=== PATIENT | female | born 1950 | race Caucasian/White ===

== ENCOUNTER 2022-03-08 01:09 | Inpatient (IN) | payer MEDICARE, BC ==
[~2022-03-08] VITALS: Ht 160 cm; Wt 190.5 kg
[2022-03-08] MEDS ORDERED: PREDNISONE 20MG TABLET PO STA (01:24)
[2022-03-08] MEDS ORDERED: ALBUTEROL (0.083%) 2.5MG/3ML NEB HHN STA (01:24)
[2022-03-08] MEDS ORDERED: IPRATROPIUM BROMIDE (0.02%) 0.5MG/2.5ML NEB HHN STA (01:24)
[2022-03-08] MEDS ORDERED: AZITHROMYCIN 500MG/250ML 250 ML IV ONE (01:30)
[2022-03-08] MEDS ORDERED: CEFTRIAXONE 1 G PREMIX 50 ML IV ONE (01:30)
[2022-03-08 02:00] LABS: BASOPHILS % 0.6 % (0.0-2.0); CHLORIDE 88 mEq/L (98-107); EOSINOPHILS % 1.5 % (0.0-5.0); HEMATOCRIT. 40.9 % (36.0-48.0); HEMOGLOBIN. 12.5 g/dL (12.0-16.0); LYMPHOCYTES % 12.3 % (20.0-50.0); MEAN CORPUSCULAR HEMOGLOBIN 28.1 pg (28.0-32.0); MEAN CORPUSCULAR VOLUME 91.9 fL (81.0-99.0); MEAN PLATELET VOLUME 8.2 fl (7.4-10.4); NEUTROPHILS % 78.6 % (40.0-76.0); PLATELET 224 x1000/uL (130-400); RED BLOOD CELL COUNT 4.45 mill/uL (4.2-5.4)
[2022-03-08 02:13] LABS: BG BASE EXCESS 21.3 mmol/L (-2.0-2.0); BG CARBOXYHEMOGLOBIN 1.8 % (0.5-1.5); BG DEOXYHEMOGLOBIN 7.9 % (0.0-5.0); BG FRACTION INSPIRED OXYGEN 36; BG HCO3 ACT 54.9 mmol/L (22.0-26.0); BG METHEMOGLOBIN 0.2 % (0.0-1.5); BG OXYGEN SATURATION 91.9 % (92.0-98.5); BG OXYHEMOGLOBIN 90.1 % (94.0-97.0); BG PCO2 125.5 mmHg (35.0-45.0); BG PH 7.259 (7.350-7.450); BG PO2 65.1 mmHg (75.0-100.0); BG TOTAL HEMOGLOBIN 13.6 g/dL (12.0-18.0); BG VENT MODE NASAL CANNULA
[2022-03-08 05:14] LABS: CLARITY URINE TURBID (CLEAR); COLOR URINE YELLOW (YELLOW); KETONES URINE NEGATIVE (NEGATIVE); LEUKOCYTE ESTERASE URINE 1+ (NEGATIVE); NITRITE URINE NEGATIVE (NEGATIVE); OCCULT BLOOD URINE NEGATIVE (NEGATIVE); PROTEIN URINE NEGATIVE (NEGATIVE); SPECIFIC GRAVITY URINE 1.013 (1.005-1.030); UROBILINOGEN URINE 0.2 E.U./dL (0.2-1.0)
[2022-03-08] MEDS ORDERED: ACETAMINOPHEN 325MG TABLET PO PRN (07:00)
[2022-03-08] MEDS ORDERED: KETOROLAC 30MG/ML VIAL IV PRN (07:00)
[2022-03-08] MEDS ORDERED: ZOLPIDEM TARTRATE 5MG TABLET PO PRN (07:00)
[2022-03-08] MEDS ORDERED: NITROGLYCERIN 0.4MG TABLET SL SL PRN (07:00)
[2022-03-08] MEDS ORDERED: MAGNESIUM/ALUMINUM HYDROXIDE/SIMETHICONE 30ML UDC PO PRN (07:00)
[2022-03-08] MEDS ORDERED: CLONIDINE 0.1MG TABLET PO PRN (07:00)
[2022-03-08] MEDS ORDERED: IPRATROPIUM/ALBUTEROL 0.5-3(2.5)MG/3ML NEB NEB PRN (07:00)
[2022-03-08 08:04] LABS: ETHANOL BLOOD < 10 mg/dL; HDL CHOLESTEROL 65 mg/dL (40-59); LDL CHOLESTEROL 78 mg/dL (5-100); TOTAL IRON BINDING CAPACITY 333 ug/dL (250-450)
[2022-03-08] MEDS: FUROSEMIDE 100MG/10ML VIAL IVP SCH ×2 (08:08→18:31)
[2022-03-08] MEDS: METHYLPREDNISOLONE SOD SUCC 125 MG/2 ML VIAL IV SCH ×3 (08:08→21:31)
[2022-03-08] MEDS: SPIRONOLACTONE 25MG TABLET PO SCH ×2 (08:08→18:31)
[2022-03-08] MEDS: ENOXAPARIN 40MG/0.4ML SYR SUBCUT SCH ×2 (08:10→21:33)
[2022-03-08 08:19] LABS: FOLIC ACID (FOLATE) SERUM >20 ng/mL ng/mL (>5.38); VITAMIN B12 SERUM 1445 pg/mL (211-911)
[2022-03-08] MEDS: IPRATROPIUM/ALBUTEROL 0.5-3(2.5)MG/3ML NEB HHN SCH ×4 (08:39→20:27)
[2022-03-08] MEDS ORDERED: CEFTRIAXONE 1 G PREMIX 50 ML IV SCH (09:00)
[2022-03-08 09:23] LABS: BG BASE EXCESS 20.6 mmol/L (-2.0-2.0); BG CARBOXYHEMOGLOBIN 1.7 % (0.5-1.5); BG FRACTION INSPIRED OXYGEN 36; BG HCO3 ACT 51.5 mmol/L (22.0-26.0); BG METHEMOGLOBIN 0.3 % (0.0-1.5); BG OXYGEN SATURATION 94.9 % (92.0-98.5); BG PCO2 94.4 mmHg (35.0-45.0); BG PH 7.355 (7.350-7.450); BG PO2 71.8 mmHg (75.0-100.0); BG SAMPLE SITE RIGHT RADIAL; BG TOTAL HEMOGLOBIN 13.7 g/dL (12.0-18.0); BG VENT MODE NASAL CANNULA
[2022-03-08] MEDS: ZINC SULFATE 220 MG ( 50 ) CAPSULE PO SCH (09:34)
[2022-03-08] MEDS: ASPIRIN 325MG EC TABLET PO SCH (09:34)
[2022-03-08] MEDS: ASCORBIC ACID 500 MG TABLET PO SCH ×2 (09:34→21:32)
[2022-03-08] MEDS: FAMOTIDINE 20MG TABLET PO SCH ×2 (09:34→21:33)
[2022-03-08 14:00] VITALS: BP 123/64
[2022-03-08 14:04] VITALS: BP 123/64
[2022-03-08] MEDS ORDERED: OXYC-100 PO (14:52)
[2022-03-08] MEDS ORDERED: DOCU100T MT (14:52)
[2022-03-08] MEDS ORDERED: HYDR-4134 MT (14:52)
[2022-03-08] MEDS ORDERED: ISOS10TA2 MT (14:52)
[2022-03-08] MEDS ORDERED: BACL-141 MT (14:52)
[2022-03-08] MEDS ORDERED: FURO40TA5 MT (14:52)
[2022-03-08] MEDS ORDERED: POTA10CA42 MT (14:52)
[2022-03-08] MEDS ORDERED: RAMI2.5C54 MT (14:52)
[2022-03-08] MEDS ORDERED: DULO60CA64 PO (14:52)
[2022-03-08 16:00] VITALS: BP 123/70
[2022-03-08 17:24] LABS: CREATINE KINASE 52 IU/L (26-192); CREATINE KINASE MB FRACTION < 1.0 ng/mL (0.5-3.6)
[2022-03-08 18:00] VITALS: BP 148/72
[2022-03-08 20:00] VITALS: BP 133/106
[2022-03-08] MEDS: GUAIFENESIN 200MG/10ML SUGAR FREE UDC PO PRN (21:31)
[2022-03-08] MEDS: ONDANSETRON HCL 4MG/2ML INJ IV PRN (21:32)
[2022-03-08] MEDS: ACETAMINOPHEN 325MG TABLET PO PRN (21:32)
[2022-03-08] MEDS: GUAIFENESIN 600MG ER TABLET PO SCH (21:38)
[2022-03-08 22:00] VITALS: BP 159/61
[2022-03-08] MEDS ORDERED: KETOROLAC 15MG/ML VIAL IV PRN (23:00)
[2022-03-08] MEDS: TRAMADOL 50MG TABLET PO PRN (23:56)
[2022-03-09] VITALS (13 sets, daily range): BP systolic 109–148; BP diastolic 29–87
[2022-03-09 00:23] LABS: CREATINE KINASE 61 IU/L (26-192); CREATINE KINASE MB FRACTION < 1.0 ng/mL (0.5-3.6)
[2022-03-09] MEDS: IPRATROPIUM/ALBUTEROL 0.5-3(2.5)MG/3ML NEB HHN SCH ×6 (00:24→20:43)
[2022-03-09] MEDS: CEFTRIAXONE 1,000 MG in DEXTROSE 5% WATER 50 ML IV SCH ×2 (01:12→09:25)
[2022-03-09] MEDS: AZITHROMYCIN 500 MG in DEXT 5% WATER 250 ML IV SCH (01:12)
[2022-03-09 06:16] LABS: CHLORIDE 83 mEq/L (98-107); HEMATOCRIT. 42.2 % (36.0-48.0); HEMOGLOBIN. 12.9 g/dL (12.0-16.0); MEAN CORPUSCULAR VOLUME 91.6 fL (81.0-99.0); MEAN PLATELET VOLUME 8.4 fl (7.4-10.4); PLATELET 237 x1000/uL (130-400); RED BLOOD CELL COUNT 4.61 mill/uL (4.2-5.4); RED CELL DISTRIBUTION WIDTH 15.9 % (11.6-14.6)
[2022-03-09] MEDS: METHYLPREDNISOLONE SOD SUCC 125 MG/2 ML VIAL IV SCH ×3 (06:18→22:01)
[2022-03-09] MEDS: FUROSEMIDE 100MG/10ML VIAL IVP SCH ×2 (06:18→17:27)
[2022-03-09] MEDS: SPIRONOLACTONE 25MG TABLET PO SCH ×2 (06:19→17:26)
[2022-03-09 06:30] LABS: PHOSPHORUS 3.8 mg/dL (2.5-4.9)
[2022-03-09 08:21] LABS: PLATELET ESTIMATE NORMAL
[2022-03-09 08:37] LABS: BG BASE EXCESS 19.5 mmol/L (-2.0-2.0); BG DEOXYHEMOGLOBIN 6.4 % (0.0-5.0); BG FRACTION INSPIRED OXYGEN 36; BG METHEMOGLOBIN 0.3 % (0.0-1.5); BG OXYGEN SATURATION 93.4 % (92.0-98.5); BG OXYHEMOGLOBIN 91.3 % (94.0-97.0); BG PCO2 134.4 mmHg (35.0-45.0); BG PH 7.222 (7.350-7.450); BG PO2 71.4 mmHg (75.0-100.0); BG SAMPLE SITE LEFT RADIAL; BG TOTAL HEMOGLOBIN 14.1 g/dL (12.0-18.0); BG VENT MODE NASAL CANNULA
[2022-03-09] MEDS: FAMOTIDINE 20MG TABLET PO SCH ×2 (09:25→20:33)
[2022-03-09] MEDS: ASPIRIN 325MG EC TABLET PO SCH (09:25)
[2022-03-09] MEDS: ZINC SULFATE 220 MG ( 50 ) CAPSULE PO SCH (09:25)
[2022-03-09] MEDS: GUAIFENESIN 600MG ER TABLET PO SCH ×2 (09:25→20:33)
[2022-03-09] MEDS: ASCORBIC ACID 500 MG TABLET PO SCH ×2 (09:25→20:33)
[2022-03-09] MEDS: ENOXAPARIN 40MG/0.4ML SYR SUBCUT SCH ×2 (09:28→20:33)
[2022-03-09] MEDS: DOCUSATE SODIUM 100MG CAPSULE PO PRN (12:43)
[2022-03-09] MEDS: TRAMADOL 50MG TABLET PO PRN (12:44)
[2022-03-09] MEDS ORDERED: NALOXONE HCL 0.4MG/ML VIAL IV PRN (19:30)
[2022-03-10] VITALS (14 sets, daily range): BP systolic 97–135; BP diastolic 49–85
[2022-03-10] MEDS: AZITHROMYCIN 500 MG in DEXT 5% WATER 250 ML IV SCH (00:16)
[2022-03-10] MEDS: IPRATROPIUM/ALBUTEROL 0.5-3(2.5)MG/3ML NEB HHN SCH ×7 (00:22→23:54)
[2022-03-10] MEDS: SPIRONOLACTONE 25MG TABLET PO SCH ×2 (05:36→17:20)
[2022-03-10] MEDS: FUROSEMIDE 100MG/10ML VIAL IVP SCH ×2 (05:36→17:16)
[2022-03-10] MEDS: METHYLPREDNISOLONE SOD SUCC 125 MG/2 ML VIAL IV SCH ×3 (05:36→21:39)
[2022-03-10] MEDS: ASPIRIN 325MG EC TABLET PO SCH (08:09)
[2022-03-10] MEDS: CEFTRIAXONE 1,000 MG in DEXTROSE 5% WATER 50 ML IV SCH (08:09)
[2022-03-10] MEDS: GUAIFENESIN 600MG ER TABLET PO SCH ×2 (08:10→20:01)
[2022-03-10] MEDS: ZINC SULFATE 220 MG ( 50 ) CAPSULE PO SCH (08:10)
[2022-03-10] MEDS: FAMOTIDINE 20MG TABLET PO SCH ×2 (08:10→20:01)
[2022-03-10] MEDS: ENOXAPARIN 40MG/0.4ML SYR SUBCUT SCH ×2 (08:10→20:02)
[2022-03-10] MEDS: ASCORBIC ACID 500 MG TABLET PO SCH ×2 (08:10→20:01)
[2022-03-10] MEDS: ACETAMINOPHEN 325MG TABLET PO PRN ×2 (08:11→20:01)
[2022-03-10 10:15] LABS: BG BASE EXCESS 15.3 mmol/L (-2.0-2.0); BG CARBOXYHEMOGLOBIN 1.6 % (0.5-1.5); BG DEOXYHEMOGLOBIN 5.5 % (0.0-5.0); BG FRACTION INSPIRED OXYGEN 44; BG HCO3 ACT 44.5 mmol/L (22.0-26.0); BG METHEMOGLOBIN 0.2 % (0.0-1.5); BG OXYGEN SATURATION 94.4 % (92.0-98.5); BG OXYHEMOGLOBIN 92.7 % (94.0-97.0); BG PCO2 79.4 mmHg (35.0-45.0); BG PH 7.366 (7.350-7.450); BG PO2 66.2 mmHg (75.0-100.0); BG SAMPLE SITE RIGHT RADIAL; BG TOTAL HEMOGLOBIN 13.3 g/dL (12.0-18.0); BG VENT MODE NASAL CANNULA
[2022-03-10] MEDS: TRAMADOL 50MG TABLET PO PRN (15:21)
[2022-03-10] MEDS: GUAIFENESIN 200MG/10ML SUGAR FREE UDC PO PRN (17:26)
[2022-03-10] MEDS: ONDANSETRON HCL 4MG/2ML INJ IV PRN (20:01)
[2022-03-11] VITALS (12 sets, daily range): BP systolic 101–145; BP diastolic 45–72
[2022-03-11] MEDS: AZITHROMYCIN 500 MG in DEXT 5% WATER 250 ML IV SCH (00:21)
[2022-03-11] MEDS: IPRATROPIUM/ALBUTEROL 0.5-3(2.5)MG/3ML NEB HHN SCH ×5 (04:09→21:01)
[2022-03-11] MEDS: SPIRONOLACTONE 25MG TABLET PO SCH ×2 (05:56→17:58)
[2022-03-11] MEDS: METHYLPREDNISOLONE SOD SUCC 125 MG/2 ML VIAL IV SCH ×3 (05:56→21:46)
[2022-03-11] MEDS: FUROSEMIDE 100MG/10ML VIAL IVP SCH ×2 (05:56→17:57)
[2022-03-11 06:52] LABS: HEMATOCRIT 40.1 % (36.0-48.0); HEMOGLOBIN 12.3 g/dL (12.0-16.0); MEAN CORPUSCULAR HEMOGLOBIN 28.1 pg (28.0-32.0); MEAN CORPUSCULAR VOLUME 91.6 fL (81.0-99.0); PLATELET 223 x1000/uL (130-400); RED BLOOD CELL COUNT 4.38 mill/uL (4.2-5.4); RED CELL DISTRIBUTION WIDTH 15.1 % (11.6-14.6)
[2022-03-11 06:56] LABS: CHLORIDE 84 mEq/L (98-107)
[2022-03-11] MEDS: CEFTRIAXONE 1,000 MG in DEXTROSE 5% WATER 50 ML IV SCH (08:42)
[2022-03-11] MEDS: FAMOTIDINE 20MG TABLET PO SCH ×2 (08:43→21:46)
[2022-03-11] MEDS: ASPIRIN 325MG EC TABLET PO SCH (08:43)
[2022-03-11] MEDS: ZINC SULFATE 220 MG ( 50 ) CAPSULE PO SCH (08:43)
[2022-03-11] MEDS: ASCORBIC ACID 500 MG TABLET PO SCH ×2 (08:43→21:46)
[2022-03-11] MEDS: GUAIFENESIN 600MG ER TABLET PO SCH ×2 (08:43→21:46)
[2022-03-11] MEDS: ENOXAPARIN 40MG/0.4ML SYR SUBCUT SCH ×2 (08:43→21:46)
[2022-03-11 08:45] LABS: BG BASE EXCESS 27.8 mmol/L (-2.0-2.0); BG CARBOXYHEMOGLOBIN 1.3 % (0.5-1.5); BG DEOXYHEMOGLOBIN 10.9 % (0.0-5.0); BG FRACTION INSPIRED OXYGEN 65; BG HCO3 ACT 62.8 mmol/L (22.0-26.0); BG METHEMOGLOBIN 0.4 % (0.0-1.5); BG OXYGEN SATURATION 88.9 % (92.0-98.5); BG OXYHEMOGLOBIN 87.4 % (94.0-97.0); BG PCO2 138.6 mmHg (35.0-45.0); BG PH 7.274 (7.350-7.450); BG SAMPLE SITE RIGHT RADIAL; BG TOTAL HEMOGLOBIN 13.9 g/dL (12.0-18.0); BG VENT MODE MASK - BIPAP
[2022-03-11] MEDS: ONDANSETRON HCL 4MG/2ML INJ IV PRN (21:51)
[2022-03-12] VITALS (11 sets, daily range): BP systolic 102–140; BP diastolic 51–83
[2022-03-12] MEDS: AZITHROMYCIN 500 MG in DEXT 5% WATER 250 ML IV SCH (00:33)
[2022-03-12] MEDS: IPRATROPIUM/ALBUTEROL 0.5-3(2.5)MG/3ML NEB HHN SCH ×6 (00:56→23:00)
[2022-03-12 06:06] LABS: CHLORIDE 84 mEq/L (98-107)
[2022-03-12 06:33] LABS: MEAN CORPUSCULAR HEMOGLOBIN 28.2 pg (28.0-32.0); MEAN CORPUSCULAR VOLUME 91.8 fL (81.0-99.0); PLATELET 203 x1000/uL (130-400); RED BLOOD CELL COUNT 4.24 mill/uL (4.2-5.4); RED CELL DISTRIBUTION WIDTH 15.1 % (11.6-14.6)
[2022-03-12] MEDS: FUROSEMIDE 40MG/4ML VIAL IVP SCH ×2 (06:34→17:05)
[2022-03-12] MEDS: SPIRONOLACTONE 25MG TABLET PO SCH ×2 (06:35→17:05)
[2022-03-12] MEDS: METHYLPREDNISOLONE SOD SUCC 125 MG/2 ML VIAL IV SCH ×3 (06:38→21:43)
[2022-03-12 07:55] LABS: BG BASE EXCESS 34.8 mmol/L (-2.0-2.0); BG CARBOXYHEMOGLOBIN 1.2 % (0.5-1.5); BG DEOXYHEMOGLOBIN 7.7 % (0.0-5.0); BG FRACTION INSPIRED OXYGEN 85; BG HCO3 ACT 68.8 mmol/L (22.0-26.0); BG METHEMOGLOBIN 0.2 % (0.0-1.5); BG OXYGEN SATURATION 92.2 % (92.0-98.5); BG OXYHEMOGLOBIN 90.9 % (94.0-97.0); BG PCO2 126.3 mmHg (35.0-45.0); BG PH 7.354 (7.350-7.450); BG PO2 62.2 mmHg (75.0-100.0); BG SAMPLE SITE RIGHT RADIAL; BG TOTAL HEMOGLOBIN 13.3 g/dL (12.0-18.0); BG VENT MODE MASK - BIPAP
[2022-03-12] MEDS: GUAIFENESIN 600MG ER TABLET PO SCH ×2 (09:11→21:42)
[2022-03-12] MEDS: ZINC SULFATE 220 MG ( 50 ) CAPSULE PO SCH (09:11)
[2022-03-12] MEDS: FAMOTIDINE 20MG TABLET PO SCH ×2 (09:11→21:42)
[2022-03-12] MEDS: ASCORBIC ACID 500 MG TABLET PO SCH ×2 (09:11→21:42)
[2022-03-12] MEDS: CEFTRIAXONE 1,000 MG in DEXTROSE 5% WATER 50 ML IV SCH (09:11)
[2022-03-12] MEDS: ACETAMINOPHEN 325MG TABLET PO PRN ×2 (09:12→17:05)
[2022-03-12] MEDS: ASPIRIN 325MG EC TABLET PO SCH (09:12)
[2022-03-12] MEDS: ENOXAPARIN 40MG/0.4ML SYR SUBCUT SCH ×2 (09:12→21:43)
[2022-03-12] MEDS: DOCUSATE SODIUM 100MG CAPSULE PO PRN (17:24)
[2022-03-13] VITALS (61 sets, daily range): BP systolic 65–152; BP diastolic 24–89
[2022-03-13 00:15] LABS: BG BASE EXCESS 26.4 mmol/L (-2.0-2.0); BG CARBOXYHEMOGLOBIN 1.3 % (0.5-1.5); BG DEOXYHEMOGLOBIN 14.8 % (0.0-5.0); BG FRACTION INSPIRED OXYGEN 100; BG HCO3 ACT 57.6 mmol/L (22.0-26.0); BG METHEMOGLOBIN 0.1 % (0.0-1.5); BG OXYHEMOGLOBIN 83.8 % (94.0-97.0); BG PCO2 98.3 mmHg (35.0-45.0); BG PH 7.386 (7.350-7.450); BG PO2 49.8 mmHg (75.0-100.0); BG SAMPLE SITE LEFT RADIAL; BG TOTAL HEMOGLOBIN 13.3 g/dL (12.0-18.0); BG VENT MODE MASK - BIPAP
[2022-03-13] MEDS: IPRATROPIUM/ALBUTEROL 0.5-3(2.5)MG/3ML NEB HHN SCH ×4 (05:15→19:52)
[2022-03-13] MEDS: FUROSEMIDE 40MG/4ML VIAL IVP SCH ×2 (05:23→17:43)
[2022-03-13] MEDS: METHYLPREDNISOLONE SOD SUCC 125 MG/2 ML VIAL IV SCH ×3 (05:23→21:50)
[2022-03-13] MEDS: SPIRONOLACTONE 25MG TABLET PO SCH ×2 (05:26→17:46)
[2022-03-13 06:36] LABS: CHLORIDE 79 mEq/L (98-107)
[2022-03-13] MEDS: ZINC SULFATE 220 MG ( 50 ) CAPSULE PO SCH (08:30)
[2022-03-13] MEDS: ASPIRIN 325MG EC TABLET PO SCH (08:30)
[2022-03-13] MEDS: FAMOTIDINE 20MG TABLET PO SCH ×2 (08:31→21:49)
[2022-03-13] MEDS: ENOXAPARIN 40MG/0.4ML SYR SUBCUT SCH (08:31)
[2022-03-13] MEDS: ASCORBIC ACID 500 MG TABLET PO SCH ×2 (08:31→21:49)
[2022-03-13] MEDS: GUAIFENESIN 600MG ER TABLET PO SCH (08:31)
[2022-03-13 08:39] LABS: BG BASE EXCESS 33.2 mmol/L (-2.0-2.0); BG CARBOXYHEMOGLOBIN 1.2 % (0.5-1.5); BG DEOXYHEMOGLOBIN 12.8 % (0.0-5.0); BG FRACTION INSPIRED OXYGEN 100; BG HCO3 ACT 66.3 mmol/L (22.0-26.0); BG METHEMOGLOBIN 0.3 % (0.0-1.5); BG OXYHEMOGLOBIN 85.7 % (94.0-97.0); BG PCO2 118.6 mmHg (35.0-45.0); BG PH 7.365 (7.350-7.450); BG PO2 53.3 mmHg (75.0-100.0); BG SAMPLE SITE RIGHT RADIAL; BG VENT MODE MASK - BIPAP
[2022-03-13] MEDS ORDERED: SUCCINYLCHOLINE CHLORIDE 200MG/10ML IV ONE (10:00)
[2022-03-13] MEDS ORDERED: ETOMIDATE 2MG/ML 10ML VIAL IV ONE (10:01)
[2022-03-13] MEDS ORDERED: PHENYLEPHRINE 100 MG in DEXT 5% WATER 240 ML IV PRN (11:30)
[2022-03-13] MEDS: PROPOFOL 10MG/ML 100ML 100 ML IV PRN ×3 (11:34→15:34)
[2022-03-13] MEDS ORDERED: NALOXONE HCL 0.4MG/ML VIAL IV PRN (11:45)
[2022-03-13 12:51] LABS: BG BASE EXCESS 23.1 mmol/L (-2.0-2.0); BG CARBOXYHEMOGLOBIN 1.4 % (0.5-1.5); BG DEOXYHEMOGLOBIN 4.8 % (0.0-5.0); BG FRACTION INSPIRED OXYGEN 100; BG HCO3 ACT 50.4 mmol/L (22.0-26.0); BG METHEMOGLOBIN 0.2 % (0.0-1.5); BG OXYGEN SATURATION 95.1 % (92.0-98.5); BG OXYHEMOGLOBIN 93.6 % (94.0-97.0); BG PCO2 67.7 mmHg (35.0-45.0); BG PO2 68.3 mmHg (75.0-100.0); BG SAMPLE SITE RIGHT RADIAL; BG TOTAL HEMOGLOBIN 12.3 g/dL (12.0-18.0); BG VENT MODE VENT - AC
[2022-03-13] MEDS: MIDAZOLAM 100MG/100ML PMX 100 ML IV PRN (13:46)
[2022-03-13] MEDS: FENTANYL 2500MCG/250ML PMX 250 ML IV PRN (14:15)
[2022-03-13] MEDS: NOREPINEPHRINE 32 MG in DEXT 5% WATER 218 ML IV PRN (14:16)
[2022-03-13] MEDS ORDERED: METHYLPREDNISOLONE SOD SUCC 40 MG/ML VIAL IV SCH (14:30)
[2022-03-13] MEDS ORDERED: RACEPINEPHRINE 2.25% 0.5ML NEB VIAL HHN SCH (14:30)
[2022-03-13] MEDS ORDERED: LIDOCAINE HCL/PF 1% 10 MG/ML 5ML VIAL ONE (14:39)
[2022-03-13] MEDS: RACEPINEPHRINE 2.25% 0.5ML NEB VIAL HHN PRN (16:55)
[2022-03-13] MEDS: GUAIFENESIN 200MG/10ML SUGAR FREE UDC GT SCH (21:49)
[2022-03-14] VITALS (101 sets, daily range): BP systolic 80–207; BP diastolic 25–129
[2022-03-14] MEDS: IPRATROPIUM/ALBUTEROL 0.5-3(2.5)MG/3ML NEB HHN SCH ×6 (00:02→20:31)
[2022-03-14] MEDS: MIDAZOLAM 100MG/100ML PMX 100 ML IV PRN ×3 (03:17→20:35)
[2022-03-14] MEDS: GUAIFENESIN 200MG/10ML SUGAR FREE UDC GT SCH ×4 (03:21→21:10)
[2022-03-14 05:40] LABS: HEMATOCRIT. 34.5 % (36.0-48.0); HEMOGLOBIN. 10.8 g/dL (12.0-16.0); MEAN CORPUSCULAR HEMOGLOBIN 27.8 pg (28.0-32.0); MEAN CORPUSCULAR VOLUME 89.1 fL (81.0-99.0); MEAN PLATELET VOLUME 9.1 fl (7.4-10.4); PLATELET 185 x1000/uL (130-400); RED BLOOD CELL COUNT 3.87 mill/uL (4.2-5.4); RED CELL DISTRIBUTION WIDTH 15.1 % (11.6-14.6)
[2022-03-14 05:45] LABS: CHLORIDE 82 mEq/L (98-107)
[2022-03-14] MEDS: FUROSEMIDE 40MG/4ML VIAL IVP SCH ×2 (05:49→17:15)
[2022-03-14] MEDS: SPIRONOLACTONE 25MG TABLET PO SCH ×2 (05:50→17:15)
[2022-03-14] MEDS: METHYLPREDNISOLONE SOD SUCC 125 MG/2 ML VIAL IV SCH ×3 (05:50→21:10)
[2022-03-14 08:05] LABS: BG BASE EXCESS 18.7 mmol/L (-2.0-2.0); BG CARBOXYHEMOGLOBIN 0.6 % (0.5-1.5); BG DEOXYHEMOGLOBIN 9.5 % (0.0-5.0); BG FRACTION INSPIRED OXYGEN 100; BG HCO3 ACT 44.7 mmol/L (22.0-26.0); BG METHEMOGLOBIN 0.3 % (0.0-1.5); BG OXYGEN SATURATION 90.4 % (92.0-98.5); BG OXYHEMOGLOBIN 89.6 % (94.0-97.0); BG PCO2 58.5 mmHg (35.0-45.0); BG PH 7.501 (7.350-7.450); BG PO2 51.8 mmHg (75.0-100.0); BG SAMPLE SITE RIGHT RADIAL; BG TOTAL HEMOGLOBIN 11.8 g/dL (12.0-18.0); BG VENT MODE VENT - AC
[2022-03-14] MEDS ORDERED: LIDOCAINE HCL/PF 1% 10 MG/ML 5ML VIAL ONE (10:02)
[2022-03-14] MEDS: FAMOTIDINE 20MG TABLET PO SCH ×2 (10:40→21:10)
[2022-03-14] MEDS: ZINC SULFATE 220 MG ( 50 ) CAPSULE PO SCH (10:40)
[2022-03-14] MEDS: ASCORBIC ACID 500 MG TABLET PO SCH ×2 (10:40→21:10)
[2022-03-14 11:14] LABS: BG BASE EXCESS 22.5 mmol/L (-2.0-2.0); BG CARBOXYHEMOGLOBIN 0.6 % (0.5-1.5); BG DEOXYHEMOGLOBIN 4.9 % (0.0-5.0); BG FRACTION INSPIRED OXYGEN 100; BG HCO3 ACT 48.4 mmol/L (22.0-26.0); BG METHEMOGLOBIN 0.1 % (0.0-1.5); BG OXYGEN SATURATION 95.1 % (92.0-98.5); BG OXYHEMOGLOBIN 94.4 % (94.0-97.0); BG PCO2 58.6 mmHg (35.0-45.0); BG PH 7.535 (7.350-7.450); BG PO2 67.9 mmHg (75.0-100.0); BG SAMPLE SITE RIGHT RADIAL; BG TOTAL HEMOGLOBIN 11.9 g/dL (12.0-18.0); BG VENT MODE PRVC
[2022-03-14] MEDS ORDERED: POTASSIUM CHLORIDE 20MEQ/PACKET PO SCH (12:00)
[2022-03-14 13:33] LABS: PLATELET ESTIMATE NORMAL
[2022-03-14] MEDS: FENTANYL 2500MCG/250ML PMX 250 ML IV PRN (15:33)
[2022-03-15] VITALS (101 sets, daily range): BP systolic 79–199; BP diastolic 34–99
[2022-03-15] MEDS: IPRATROPIUM/ALBUTEROL 0.5-3(2.5)MG/3ML NEB HHN SCH ×6 (00:17→21:31)
[2022-03-15] MEDS: MIDAZOLAM 100MG/100ML PMX 100 ML IV PRN ×3 (03:24→23:16)
[2022-03-15] MEDS: GUAIFENESIN 200MG/10ML SUGAR FREE UDC GT SCH ×4 (03:26→20:48)
[2022-03-15 06:14] LABS: HEMATOCRIT. 35.7 % (36.0-48.0); MEAN CORPUSCULAR HEMOGLOBIN 27.6 pg (28.0-32.0); MEAN CORPUSCULAR VOLUME 89.8 fL (81.0-99.0); MEAN PLATELET VOLUME 9.4 fl (7.4-10.4); PLATELET 163 x1000/uL (130-400); RED BLOOD CELL COUNT 3.98 mill/uL (4.2-5.4); RED CELL DISTRIBUTION WIDTH 15.5 % (11.6-14.6)
[2022-03-15] MEDS: SPIRONOLACTONE 25MG TABLET PO SCH ×2 (06:16→18:01)
[2022-03-15] MEDS: METHYLPREDNISOLONE SOD SUCC 125 MG/2 ML VIAL IV SCH ×3 (06:16→21:38)
[2022-03-15] MEDS: FUROSEMIDE 40MG/4ML VIAL IVP SCH ×2 (06:16→18:01)
[2022-03-15 06:38] LABS: CHLORIDE 84 mEq/L (98-107)
[2022-03-15] MEDS: NOREPINEPHRINE 32 MG in DEXT 5% WATER 218 ML IV PRN ×2 (06:40→23:31)
[2022-03-15] MEDS: FENTANYL 2500MCG/250ML PMX 250 ML IV PRN (06:41)
[2022-03-15] MEDS ORDERED: VECURONIUM BROMIDE 10 MG/VIAL IV ONE (09:33)
[2022-03-15] MEDS ORDERED: SUCCINYLCHOLINE CHLORIDE 200MG/10ML IV ONE (09:33)
[2022-03-15] MEDS ORDERED: ETOMIDATE 2MG/ML 10ML VIAL IV ONE (09:33)
[2022-03-15] MEDS: ASCORBIC ACID 500 MG TABLET PO SCH ×2 (09:58→20:49)
[2022-03-15] MEDS: FAMOTIDINE 20MG TABLET PO SCH ×2 (09:58→20:49)
[2022-03-15] MEDS: ZINC SULFATE 220 MG ( 50 ) CAPSULE PO SCH (09:58)
[2022-03-15 11:11] LABS: BG CARBOXYHEMOGLOBIN 0.9 % (0.5-1.5); BG DEOXYHEMOGLOBIN 6.8 % (0.0-5.0); BG METHEMOGLOBIN 0.3 % (0.0-1.5); BG OXYGEN SATURATION 93.1 % (92.0-98.5); BG PCO2 57.2 mmHg (35.0-45.0); BG PH 7.473 (7.350-7.450); BG PO2 63.5 mmHg (75.0-100.0); BG SAMPLE SITE LEFT RADIAL; BG TOTAL HEMOGLOBIN 11.8 g/dL (12.0-18.0); BG VENT MODE VENT- PRVC
[2022-03-15] MEDS ORDERED: CEFEPIME 1,000 MG in DEXTROSE 5% WATER 50 ML IV SCH (11:15)
[2022-03-15 11:27] LABS: PLATELET ESTIMATE NORMAL
[2022-03-15 12:59] LABS: CLARITY URINE CLEAR (CLEAR); COLOR URINE YELLOW (YELLOW); KETONES URINE 3+ (NEGATIVE); LEUKOCYTE ESTERASE URINE TRACE (NEGATIVE); NITRITE URINE NEGATIVE (NEGATIVE); OCCULT BLOOD URINE TRACE (NEGATIVE); PH URINE 6.5 (4.5-8.0); PROTEIN URINE 1+ (NEGATIVE); SPECIFIC GRAVITY URINE 1.019 (1.005-1.030); UROBILINOGEN URINE 0.2 E.U./dL (0.2-1.0)
[2022-03-15] MEDS ORDERED: VANCOMYCIN 2,000 MG in DEXT 5% WATER 500 ML IV NR (14:00)
[2022-03-15] MEDS: CEFEPIME 2,000 MG in DEXT 5% WATER 100 ML IV SCH ×2 (14:24→21:38)
[2022-03-15] MEDS ORDERED: POTASSIUM CHLORIDE INJ 40 MEQ in DEXT 5% WATER 500 ML IV NR (15:00)
[2022-03-16] VITALS (99 sets, daily range): BP systolic 55–186; BP diastolic 30–111
[2022-03-16] MEDS ORDERED: VANCOMYCIN 750MG PREMIX 150 ML IV SCH
[2022-03-16] MEDS: IPRATROPIUM/ALBUTEROL 0.5-3(2.5)MG/3ML NEB HHN SCH ×7 (00:41→23:53)
[2022-03-16] MEDS: FENTANYL 2500MCG/250ML PMX 250 ML IV PRN ×2 (01:40→16:11)
[2022-03-16] MEDS: GUAIFENESIN 200MG/10ML SUGAR FREE UDC GT SCH ×4 (04:45→20:59)
[2022-03-16] MEDS: FUROSEMIDE 40MG/4ML VIAL IVP SCH ×2 (06:46→17:35)
[2022-03-16] MEDS: METHYLPREDNISOLONE SOD SUCC 125 MG/2 ML VIAL IV SCH ×3 (06:46→21:12)
[2022-03-16] MEDS: CEFEPIME 2,000 MG in DEXT 5% WATER 100 ML IV SCH ×3 (06:46→21:12)
[2022-03-16] MEDS: SPIRONOLACTONE 25MG TABLET PO SCH ×2 (06:46→17:35)
[2022-03-16] MEDS: FAMOTIDINE 20MG TABLET PO SCH ×2 (08:27→20:59)
[2022-03-16] MEDS: ZINC SULFATE 220 MG ( 50 ) CAPSULE PO SCH (08:27)
[2022-03-16] MEDS: ASCORBIC ACID 500 MG TABLET PO SCH ×2 (08:27→20:59)
[2022-03-16] MEDS: MIDAZOLAM 100MG/100ML PMX 100 ML IV PRN ×2 (08:28→16:11)
[2022-03-16] MEDS: RACEPINEPHRINE 2.25% 0.5ML NEB VIAL HHN PRN (11:18)
[2022-03-16 11:33] LABS: BG CARBOXYHEMOGLOBIN 0.3 % (0.5-1.5); BG DEOXYHEMOGLOBIN 1.4 % (0.0-5.0); BG FRACTION INSPIRED OXYGEN 100; BG METHEMOGLOBIN 0.3 % (0.0-1.5); BG OXYGEN SATURATION 98.6 % (92.0-98.5); BG PCO2 43.8 mmHg (35.0-45.0); BG PH 7.521 (7.350-7.450); BG PO2 129.5 mmHg (75.0-100.0); BG SAMPLE SITE RIGHT RADIAL; BG TOTAL HEMOGLOBIN 11.6 g/dL (12.0-18.0); BG VENT MODE PRVC
[2022-03-16 11:35] LABS: HEMATOCRIT. 34.7 % (36.0-48.0); HEMOGLOBIN. 10.9 g/dL (12.0-16.0); MEAN CORPUSCULAR HEMOGLOBIN 27.6 pg (28.0-32.0); MEAN CORPUSCULAR VOLUME 87.7 fL (81.0-99.0); MEAN PLATELET VOLUME 9.1 fl (7.4-10.4); PLATELET 179 x1000/uL (130-400); RED BLOOD CELL COUNT 3.95 mill/uL (4.2-5.4); RED CELL DISTRIBUTION WIDTH 15.2 % (11.6-14.6)
[2022-03-16 11:52] LABS: CHLORIDE 85 mEq/L (98-107)
[2022-03-16] MEDS: BLOOD SUGAR DIAGNOSTIC STRIP TEST SCH ×3 (12:00→23:42)
[2022-03-16] MEDS ORDERED: POTASSIUM CHLORIDE 20MEQ/PACKET PO NR (12:30)
[2022-03-16] MEDS ORDERED: DEXTROSE 50% WATER 50ML SYRINGE IV PRN (12:30)
[2022-03-16] MEDS: INSULIN LISPRO 100 UNITS/ML SUBCUT SCH ×3 (12:32→23:56)
[2022-03-16] MEDS ORDERED: POTASSIUM CHLORIDE INJ 40 MEQ in DEXT 5% WATER 500 ML IV ONE (14:00)
[2022-03-16] MEDS ORDERED: POTASSIUM CHLORIDE INJ 40 MEQ in DEXT 5% WATER 250 ML IV NR (14:30)
[2022-03-16] MEDS ORDERED: VANCOMYCIN 1G PREMIX 200 ML IV SCH (18:00)
[2022-03-16 22:52] LABS: PLATELET ESTIMATE NORMAL
[2022-03-16] MEDS: METOCLOPRAMIDE HCL 10MG/2ML VIAL IV SCH (23:56)
[2022-03-17] VITALS (91 sets, daily range): BP systolic 80–165; BP diastolic 38–92
[2022-03-17] MEDS: MIDAZOLAM 100MG/100ML PMX 100 ML IV PRN ×2 (01:51→11:10)
[2022-03-17] MEDS: GUAIFENESIN 200MG/10ML SUGAR FREE UDC GT SCH ×4 (02:12→21:18)
[2022-03-17] MEDS: IPRATROPIUM/ALBUTEROL 0.5-3(2.5)MG/3ML NEB HHN SCH ×6 (03:54→23:51)
[2022-03-17 06:21] LABS: CHLORIDE 89 mEq/L (98-107)
[2022-03-17] MEDS: BLOOD SUGAR DIAGNOSTIC STRIP TEST SCH ×3 (06:57→17:39)
[2022-03-17] MEDS: METHYLPREDNISOLONE SOD SUCC 125 MG/2 ML VIAL IV SCH ×3 (07:08→21:18)
[2022-03-17] MEDS: CEFEPIME 2,000 MG in DEXT 5% WATER 100 ML IV SCH ×3 (07:08→21:17)
[2022-03-17] MEDS: FUROSEMIDE 40MG/4ML VIAL IVP SCH ×2 (07:08→17:06)
[2022-03-17] MEDS: SPIRONOLACTONE 25MG TABLET PO SCH ×2 (07:09→17:08)
[2022-03-17] MEDS: INSULIN LISPRO 100 UNITS/ML SUBCUT SCH ×3 (07:11→18:04)
[2022-03-17] MEDS: METOCLOPRAMIDE HCL 10MG/2ML VIAL IV SCH ×3 (07:13→17:06)
[2022-03-17] MEDS: FENTANYL 2500MCG/250ML PMX 250 ML IV PRN (08:13)
[2022-03-17] MEDS: ZINC SULFATE 220 MG ( 50 ) CAPSULE PO SCH (08:25)
[2022-03-17] MEDS: ASCORBIC ACID 500 MG TABLET PO SCH ×2 (08:25→21:18)
[2022-03-17] MEDS: FAMOTIDINE 20MG TABLET PO SCH ×2 (08:25→21:18)
[2022-03-17] MEDS: VANCOMYCIN 1.25GM PMX (XELLIA) 250 ML IV SCH (17:06)
[2022-03-17] MEDS ORDERED: MIDAZOLAM HCL 100 MG in DEXT 5% WATER 80 ML IV PRN (20:00)
[2022-03-17] MEDS ORDERED: MIDAZOLAM HCL 100 MG in SODIUM CHLORIDE 0.9% 80 ML IV PRN (20:15)
[2022-03-17] MEDS: FENTANYL CITRATE/PF 2,500 MCG in SODIUM CHLORIDE 0.9% 200 ML IV PRN (21:19)
[2022-03-17] MEDS: MIDAZOLAM HCL 100 MG in SODIUM CHLORIDE 0.9% 80 ML IV PRN (21:52)
[2022-03-18] VITALS (74 sets, daily range): BP systolic 88–162; BP diastolic 34–120
[2022-03-18] MEDS: METOCLOPRAMIDE HCL 10MG/2ML VIAL IV SCH ×4 (00:18→18:35)
[2022-03-18] MEDS: BLOOD SUGAR DIAGNOSTIC STRIP TEST SCH ×4 (00:18→17:19)
[2022-03-18] MEDS: INSULIN LISPRO 100 UNITS/ML SUBCUT SCH ×4 (00:22→18:35)
[2022-03-18] MEDS: IPRATROPIUM/ALBUTEROL 0.5-3(2.5)MG/3ML NEB HHN SCH ×5 (04:32→20:28)
[2022-03-18] MEDS: SPIRONOLACTONE 25MG TABLET PO SCH ×2 (05:38→18:35)
[2022-03-18] MEDS: FUROSEMIDE 40MG/4ML VIAL IVP SCH ×2 (05:38→18:35)
[2022-03-18] MEDS: CEFEPIME 2,000 MG in DEXT 5% WATER 100 ML IV SCH ×3 (05:38→21:21)
[2022-03-18] MEDS: METHYLPREDNISOLONE SOD SUCC 125 MG/2 ML VIAL IV SCH ×3 (05:38→21:21)
[2022-03-18] MEDS: GUAIFENESIN 200MG/10ML SUGAR FREE UDC GT SCH ×4 (05:41→21:21)
[2022-03-18] MEDS: ZINC SULFATE 220 MG ( 50 ) CAPSULE PO SCH (09:00)
[2022-03-18] MEDS: ASCORBIC ACID 500 MG TABLET PO SCH ×2 (09:00→21:21)
[2022-03-18] MEDS: FAMOTIDINE 20MG TABLET PO SCH ×2 (09:00→21:21)
[2022-03-18] MEDS: MIDAZOLAM HCL 100 MG in SODIUM CHLORIDE 0.9% 80 ML IV PRN (09:13)
[2022-03-18 09:33] LABS: BG BASE EXCESS 10.1 mmol/L (-2.0-2.0); BG CARBOXYHEMOGLOBIN 0.4 % (0.5-1.5); BG DEOXYHEMOGLOBIN 2.1 % (0.0-5.0); BG FRACTION INSPIRED OXYGEN 85; BG HCO3 ACT 33.9 mmol/L (22.0-26.0); BG METHEMOGLOBIN 0.2 % (0.0-1.5); BG OXYGEN SATURATION 97.9 % (92.0-98.5); BG OXYHEMOGLOBIN 97.3 % (94.0-97.0); BG PCO2 42.3 mmHg (35.0-45.0); BG PH 7.522 (7.350-7.450); BG PO2 97.2 mmHg (75.0-100.0); BG SAMPLE SITE RIGHT RADIAL; BG TOTAL HEMOGLOBIN 11.4 g/dL (12.0-18.0); BG VENT MODE VENT - AC
[2022-03-18] MEDS: VANCOMYCIN 1.25GM PMX (XELLIA) 250 ML IV SCH (12:15)
[2022-03-18] MEDS: FENTANYL CITRATE/PF 2,500 MCG in SODIUM CHLORIDE 0.9% 200 ML IV PRN (17:03)
[2022-03-19] VITALS (64 sets, daily range): BP systolic 88–167; BP diastolic 22–117
[2022-03-19] MEDS: METOCLOPRAMIDE HCL 10MG/2ML VIAL IV SCH ×4 (00:02→18:21)
[2022-03-19] MEDS: BLOOD SUGAR DIAGNOSTIC STRIP TEST SCH ×4 (00:08→18:14)
[2022-03-19] MEDS: INSULIN LISPRO 100 UNITS/ML SUBCUT SCH ×4 (00:12→18:22)
[2022-03-19] MEDS: IPRATROPIUM/ALBUTEROL 0.5-3(2.5)MG/3ML NEB HHN SCH ×6 (00:25→20:29)
[2022-03-19] MEDS: GUAIFENESIN 200MG/10ML SUGAR FREE UDC GT SCH ×4 (03:00→21:56)
[2022-03-19] MEDS: METHYLPREDNISOLONE SOD SUCC 125 MG/2 ML VIAL IV SCH ×3 (05:05→21:56)
[2022-03-19] MEDS: FUROSEMIDE 40MG/4ML VIAL IVP SCH ×2 (05:05→18:21)
[2022-03-19] MEDS: CEFEPIME 2,000 MG in DEXT 5% WATER 100 ML IV SCH ×3 (05:05→21:56)
[2022-03-19] MEDS: VANCOMYCIN 1250MG in DEXTROSE 5% WATER 250ML IV SCH (05:05)
[2022-03-19] MEDS: SPIRONOLACTONE 25MG TABLET PO SCH ×2 (05:06→18:21)
[2022-03-19] MEDS: FENTANYL CITRATE/PF 2,500 MCG in SODIUM CHLORIDE 0.9% 200 ML IV PRN ×2 (05:34→19:56)
[2022-03-19 06:22] LABS: HEMOGLOBIN 10.7 g/dL (12.0-16.0); MEAN CORPUSCULAR HEMOGLOBIN 28.2 pg (28.0-32.0); PLATELET 182 x1000/uL (130-400); RED BLOOD CELL COUNT 3.81 mill/uL (4.2-5.4); RED CELL DISTRIBUTION WIDTH 15.3 % (11.6-14.6)
[2022-03-19 06:43] LABS: CHLORIDE 92 mEq/L (98-107)
[2022-03-19] MEDS: MIDAZOLAM HCL 100 MG in SODIUM CHLORIDE 0.9% 80 ML IV PRN (07:02)
[2022-03-19 09:07] LABS: BG BASE EXCESS 6.4 mmol/L (-2.0-2.0); BG CARBOXYHEMOGLOBIN 0.6 % (0.5-1.5); BG DEOXYHEMOGLOBIN 4.3 % (0.0-5.0); BG FRACTION INSPIRED OXYGEN 85; BG HCO3 ACT 31.7 mmol/L (22.0-26.0); BG METHEMOGLOBIN 0.2 % (0.0-1.5); BG OXYGEN SATURATION 95.7 % (92.0-98.5); BG OXYHEMOGLOBIN 94.9 % (94.0-97.0); BG PCO2 48.9 mmHg (35.0-45.0); BG SAMPLE SITE LEFT RADIAL; BG TOTAL HEMOGLOBIN 12.4 g/dL (12.0-18.0); BG VENT MODE VENT - AC
[2022-03-19] MEDS: ZINC SULFATE 220 MG ( 50 ) CAPSULE PO SCH (09:20)
[2022-03-19] MEDS: ASCORBIC ACID 500 MG TABLET PO SCH ×2 (09:20→21:56)
[2022-03-19] MEDS: FAMOTIDINE 20MG TABLET PO SCH ×2 (09:20→21:56)
[2022-03-20] VITALS (42 sets, daily range): BP systolic 78–166; BP diastolic 40–122
[2022-03-20] MEDS ORDERED: PROPOFOL 10MG/ML 100ML 100 ML IV PRN (00:15)
[2022-03-20] MEDS: BLOOD SUGAR DIAGNOSTIC STRIP TEST SCH ×4 (00:15→18:32)
[2022-03-20] MEDS: METOCLOPRAMIDE HCL 10MG/2ML VIAL IV SCH ×4 (00:22→18:32)
[2022-03-20] MEDS: VANCOMYCIN 1250MG in DEXTROSE 5% WATER 250ML IV SCH ×2 (00:22→18:33)
[2022-03-20] MEDS: INSULIN LISPRO 100 UNITS/ML SUBCUT SCH ×4 (00:23→18:00)
[2022-03-20] MEDS: IPRATROPIUM/ALBUTEROL 0.5-3(2.5)MG/3ML NEB HHN SCH ×6 (00:26→20:24)
[2022-03-20] MEDS: MIDAZOLAM HCL 100 MG in SODIUM CHLORIDE 0.9% 80 ML IV PRN ×2 (00:27→13:06)
[2022-03-20] MEDS: GUAIFENESIN 200MG/10ML SUGAR FREE UDC GT SCH ×4 (04:20→21:22)
[2022-03-20] MEDS: METHYLPREDNISOLONE SOD SUCC 125 MG/2 ML VIAL IV SCH ×3 (05:16→21:22)
[2022-03-20] MEDS: SPIRONOLACTONE 25MG TABLET PO SCH ×2 (05:16→18:32)
[2022-03-20] MEDS: CEFEPIME 2,000 MG in DEXT 5% WATER 100 ML IV SCH ×2 (05:16→14:36)
[2022-03-20] MEDS: FUROSEMIDE 40MG/4ML VIAL IVP SCH ×2 (05:16→18:33)
[2022-03-20 05:35] LABS: HEMOGLOBIN 10.4 g/dL (12.0-16.0); MEAN CORPUSCULAR HEMOGLOBIN 27.9 pg (28.0-32.0); MEAN CORPUSCULAR VOLUME 88.4 fL (81.0-99.0); PLATELET 191 x1000/uL (130-400); RED BLOOD CELL COUNT 3.73 mill/uL (4.2-5.4); RED CELL DISTRIBUTION WIDTH 15.8 % (11.6-14.6)
[2022-03-20] MEDS: FENTANYL CITRATE/PF 2,500 MCG in SODIUM CHLORIDE 0.9% 200 ML IV PRN ×2 (05:55→19:42)
[2022-03-20 06:13] LABS: CHLORIDE 95 mEq/L (98-107)
[2022-03-20] MEDS: ASCORBIC ACID 500 MG TABLET PO SCH ×2 (08:27→21:22)
[2022-03-20] MEDS: ZINC SULFATE 220 MG ( 50 ) CAPSULE PO SCH (08:27)
[2022-03-20] MEDS: FAMOTIDINE 20MG TABLET PO SCH ×2 (08:27→21:22)
[2022-03-20 08:38] LABS: BG CARBOXYHEMOGLOBIN 0.3 % (0.5-1.5); BG DEOXYHEMOGLOBIN 11.3 % (0.0-5.0); BG FRACTION INSPIRED OXYGEN 85; BG HCO3 ACT 35.2 mmol/L (22.0-26.0); BG METHEMOGLOBIN 0.9 % (0.0-1.5); BG OXYGEN SATURATION 88.6 % (92.0-98.5); BG OXYHEMOGLOBIN 87.5 % (94.0-97.0); BG PCO2 62.9 mmHg (35.0-45.0); BG PH 7.366 (7.350-7.450); BG PO2 57.7 mmHg (75.0-100.0); BG SAMPLE SITE RIGHT RADIAL; BG TOTAL HEMOGLOBIN 11.9 g/dL (12.0-18.0); BG VENT MODE VENT - PRVC
[2022-03-21] VITALS (41 sets, daily range): BP systolic 92–166; BP diastolic 28–89
[2022-03-21] MEDS: METOCLOPRAMIDE HCL 10MG/2ML VIAL IV SCH ×4 (00:12→18:01)
[2022-03-21] MEDS: INSULIN LISPRO 100 UNITS/ML SUBCUT SCH ×4 (00:12→18:00)
[2022-03-21] MEDS: NOREPINEPHRINE 32 MG in DEXT 5% WATER 218 ML IV PRN (00:14)
[2022-03-21] MEDS: BLOOD SUGAR DIAGNOSTIC STRIP TEST SCH ×4 (00:14→18:01)
[2022-03-21] MEDS: IPRATROPIUM/ALBUTEROL 0.5-3(2.5)MG/3ML NEB HHN SCH ×6 (00:39→20:53)
[2022-03-21] MEDS: ACETYLCYSTEINE 100MG/ML 10% VIAL 4ML INH SCH ×3 (00:40→15:16)
[2022-03-21] MEDS: MIDAZOLAM HCL 100 MG in SODIUM CHLORIDE 0.9% 80 ML IV PRN ×2 (03:15→10:47)
[2022-03-21] MEDS: GUAIFENESIN 200MG/10ML SUGAR FREE UDC GT SCH ×4 (03:29→21:10)
[2022-03-21] MEDS: SPIRONOLACTONE 25MG TABLET PO SCH ×2 (05:36→18:27)
[2022-03-21] MEDS: METHYLPREDNISOLONE SOD SUCC 125 MG/2 ML VIAL IV SCH ×3 (05:36→21:10)
[2022-03-21] MEDS: FUROSEMIDE 40MG/4ML VIAL IVP SCH ×2 (05:41→18:27)
[2022-03-21 05:44] LABS: HEMOGLOBIN 10.4 g/dL (12.0-16.0); MEAN CORPUSCULAR HEMOGLOBIN 27.7 pg (28.0-32.0); PLATELET 197 x1000/uL (130-400); RED BLOOD CELL COUNT 3.78 mill/uL (4.2-5.4); RED CELL DISTRIBUTION WIDTH 15.3 % (11.6-14.6)
[2022-03-21 06:25] LABS: CHLORIDE 93 mEq/L (98-107)
[2022-03-21] MEDS: FENTANYL CITRATE/PF 2,500 MCG in SODIUM CHLORIDE 0.9% 200 ML IV PRN (07:55)
[2022-03-21 08:05] LABS: BG BASE EXCESS 9.3 mmol/L (-2.0-2.0); BG CARBOXYHEMOGLOBIN 0.3 % (0.5-1.5); BG DEOXYHEMOGLOBIN 8.8 % (0.0-5.0); BG FRACTION INSPIRED OXYGEN 100; BG HCO3 ACT 36.3 mmol/L (22.0-26.0); BG METHEMOGLOBIN 0.3 % (0.0-1.5); BG OXYGEN SATURATION 91.1 % (92.0-98.5); BG OXYHEMOGLOBIN 90.6 % (94.0-97.0); BG PH 7.385 (7.350-7.450); BG PO2 61.8 mmHg (75.0-100.0); BG SAMPLE SITE RIGHT RADIAL; BG TOTAL HEMOGLOBIN 11.8 g/dL (12.0-18.0); BG VENT MODE VENT PRVC
[2022-03-21] MEDS: ASCORBIC ACID 500 MG TABLET PO SCH ×2 (09:21→21:10)
[2022-03-21] MEDS: FAMOTIDINE 20MG TABLET PO SCH ×2 (09:21→21:10)
[2022-03-21] MEDS: ZINC SULFATE 220 MG ( 50 ) CAPSULE PO SCH (09:21)
[2022-03-21] MEDS ORDERED: DOPAMINE 400MG/250ML PREMIX 250 ML IV PRN (20:15)
[2022-03-21] MEDS: ATROPINE SULFATE 1MG/10ML SYR IV PRN (21:10)
[2022-03-22] VITALS (60 sets, daily range): BP systolic 87–155; BP diastolic 40–94
[2022-03-22] MEDS: ACETYLCYSTEINE 100MG/ML 10% VIAL 4ML INH SCH ×3 (00:25→16:32)
[2022-03-22] MEDS: IPRATROPIUM/ALBUTEROL 0.5-3(2.5)MG/3ML NEB HHN SCH ×6 (00:26→20:46)
[2022-03-22] MEDS: BLOOD SUGAR DIAGNOSTIC STRIP TEST SCH ×4 (00:27→17:39)
[2022-03-22] MEDS: INSULIN LISPRO 100 UNITS/ML SUBCUT SCH ×4 (00:27→17:39)
[2022-03-22] MEDS: METOCLOPRAMIDE HCL 10MG/2ML VIAL IV SCH ×4 (00:27→17:39)
[2022-03-22] MEDS: MIDAZOLAM HCL 100 MG in SODIUM CHLORIDE 0.9% 80 ML IV PRN ×2 (01:24→19:18)
[2022-03-22] MEDS: GUAIFENESIN 200MG/10ML SUGAR FREE UDC GT SCH ×4 (02:24→21:07)
[2022-03-22] MEDS: ATROPINE SULFATE 1MG/10ML SYR IV PRN ×2 (03:38→19:18)
[2022-03-22] MEDS: FENTANYL CITRATE/PF 2,500 MCG in SODIUM CHLORIDE 0.9% 200 ML IV PRN (05:03)
[2022-03-22] MEDS: FUROSEMIDE 40MG/4ML VIAL IVP SCH ×2 (05:04→09:51)
[2022-03-22] MEDS: SPIRONOLACTONE 25MG TABLET PO SCH ×2 (05:04→17:39)
[2022-03-22] MEDS: METHYLPREDNISOLONE SOD SUCC 125 MG/2 ML VIAL IV SCH ×3 (05:04→21:08)
[2022-03-22 07:39] LABS: BG BASE EXCESS 13.6 mmol/L (-2.0-2.0); BG CARBOXYHEMOGLOBIN 0.1 % (0.5-1.5); BG DEOXYHEMOGLOBIN 12.5 % (0.0-5.0); BG FRACTION INSPIRED OXYGEN 100; BG HCO3 ACT 40.3 mmol/L (22.0-26.0); BG METHEMOGLOBIN 0.3 % (0.0-1.5); BG OXYGEN SATURATION 87.4 % (92.0-98.5); BG OXYHEMOGLOBIN 87.1 % (94.0-97.0); BG PH 7.431 (7.350-7.450); BG PO2 53.5 mmHg (75.0-100.0); BG SAMPLE SITE RIGHT RADIAL; BG VENT MODE VENT PRVC
[2022-03-22] MEDS: FAMOTIDINE 20MG TABLET PO SCH ×2 (09:39→21:08)
[2022-03-22] MEDS: ZINC SULFATE 220 MG ( 50 ) CAPSULE PO SCH (09:39)
[2022-03-22] MEDS: ASCORBIC ACID 500 MG TABLET PO SCH ×2 (09:39→21:08)
[2022-03-22] MEDS ORDERED: MIDAZOLAM 100MG/100ML PMX 100 ML IV PRN (22:30)
[2022-03-22] MEDS ORDERED: FENTANYL 2500MCG/250ML PMX 250 ML IV ONE ×3 (22:30→22:45)
[2022-03-22] MEDS: FENTANYL CITRATE 2,500 MCG in SODIUM CHLORIDE 0.9% 200 ML IV PRN (23:07)
[2022-03-23] VITALS (66 sets, daily range): BP systolic 91–154; BP diastolic 43–95
[2022-03-23] MEDS: METOCLOPRAMIDE HCL 10MG/2ML VIAL IV SCH ×4 (00:22→17:04)
[2022-03-23] MEDS: BLOOD SUGAR DIAGNOSTIC STRIP TEST SCH ×4 (00:23→17:07)
[2022-03-23] MEDS: INSULIN LISPRO 100 UNITS/ML SUBCUT SCH ×4 (00:23→17:07)
[2022-03-23] MEDS: ACETYLCYSTEINE 100MG/ML 10% VIAL 4ML INH SCH ×4 (00:53→22:00)
[2022-03-23] MEDS: IPRATROPIUM/ALBUTEROL 0.5-3(2.5)MG/3ML NEB HHN SCH ×6 (00:53→21:01)
[2022-03-23] MEDS: GUAIFENESIN 200MG/10ML SUGAR FREE UDC GT SCH ×4 (03:41→21:00)
[2022-03-23] MEDS: MIDAZOLAM HCL 100 MG in SODIUM CHLORIDE 0.9% 80 ML IV PRN ×3 (05:29→22:17)
[2022-03-23] MEDS: SPIRONOLACTONE 25MG TABLET PO SCH ×2 (05:31→17:04)
[2022-03-23] MEDS: METHYLPREDNISOLONE SOD SUCC 125 MG/2 ML VIAL IV SCH ×3 (05:31→21:23)
[2022-03-23 05:42] LABS: HEMATOCRIT 33.6 % (36.0-48.0); HEMOGLOBIN 10.5 g/dL (12.0-16.0); MEAN CORPUSCULAR HEMOGLOBIN 27.9 pg (28.0-32.0); MEAN CORPUSCULAR VOLUME 89.3 fL (81.0-99.0); PLATELET 184 x1000/uL (130-400); RED BLOOD CELL COUNT 3.76 mill/uL (4.2-5.4); RED CELL DISTRIBUTION WIDTH 15.4 % (11.6-14.6)
[2022-03-23 06:01] LABS: CHLORIDE 97 mEq/L (98-107)
[2022-03-23] MEDS ORDERED: ATROPINE SULFATE 1MG/10ML SYR IV PRN ×2 (07:30)
[2022-03-23 08:40] LABS: BG BASE EXCESS 8.2 mmol/L (-2.0-2.0); BG CARBOXYHEMOGLOBIN 0.2 % (0.5-1.5); BG DEOXYHEMOGLOBIN 11.7 % (0.0-5.0); BG FRACTION INSPIRED OXYGEN 100; BG HCO3 ACT 34.3 mmol/L (22.0-26.0); BG METHEMOGLOBIN 0.3 % (0.0-1.5); BG OXYGEN SATURATION 88.2 % (92.0-98.5); BG OXYHEMOGLOBIN 87.8 % (94.0-97.0); BG PCO2 54.4 mmHg (35.0-45.0); BG PH 7.417 (7.350-7.450); BG SAMPLE SITE RIGHT RADIAL; BG VENT MODE PRVC
[2022-03-23] MEDS: FUROSEMIDE 40MG/4ML VIAL IVP SCH (09:08)
[2022-03-23] MEDS: ZINC SULFATE 220 MG ( 50 ) CAPSULE PO SCH (09:08)
[2022-03-23] MEDS: FAMOTIDINE 20MG TABLET PO SCH ×2 (09:08→21:23)
[2022-03-23] MEDS: ASCORBIC ACID 500 MG TABLET PO SCH ×2 (09:21→21:23)
[2022-03-23] MEDS: LACTULOSE 20G/30ML UDC PO SCH ×2 (10:59→21:22)
[2022-03-23] MEDS ORDERED: BISACODYL 10MG SUPP PR SCH (11:00)
[2022-03-23] MEDS: FENTANYL CITRATE 2,500 MCG in SODIUM CHLORIDE 0.9% 200 ML IV PRN (12:50)
[2022-03-23] MEDS: DOCUSATE SODIUM SUGAR FREE 100MG/10ML UDC NG PRN ×2 (14:29→21:22)
[2022-03-23] MEDS: GUAIFENESIN 200MG/10ML SUGAR FREE UDC PO PRN (21:28)
[2022-03-24] VITALS (91 sets, daily range): BP systolic 59–182; BP diastolic 31–97
[2022-03-24] MEDS: BLOOD SUGAR DIAGNOSTIC STRIP TEST SCH ×4 (00:19→17:34)
[2022-03-24] MEDS: METOCLOPRAMIDE HCL 10MG/2ML VIAL IV SCH ×4 (00:19→17:48)
[2022-03-24] MEDS: INSULIN LISPRO 100 UNITS/ML SUBCUT SCH ×4 (00:30→17:51)
[2022-03-24] MEDS: GUAIFENESIN 200MG/10ML SUGAR FREE UDC GT SCH ×4 (02:34→21:21)
[2022-03-24] MEDS: IPRATROPIUM/ALBUTEROL 0.5-3(2.5)MG/3ML NEB HHN SCH ×6 (04:00→19:50)
[2022-03-24] MEDS: FENTANYL CITRATE 2,500 MCG in SODIUM CHLORIDE 0.9% 200 ML IV PRN ×2 (04:08→22:24)
[2022-03-24 06:05] LABS: HEMATOCRIT 36.4 % (36.0-48.0); HEMOGLOBIN 11.3 g/dL (12.0-16.0); MEAN CORPUSCULAR VOLUME 90.3 fL (81.0-99.0); PLATELET 192 x1000/uL (130-400); RED BLOOD CELL COUNT 4.03 mill/uL (4.2-5.4); RED CELL DISTRIBUTION WIDTH 15.9 % (11.6-14.6)
[2022-03-24] MEDS: METHYLPREDNISOLONE SOD SUCC 125 MG/2 ML VIAL IV SCH ×3 (06:15→21:21)
[2022-03-24] MEDS ORDERED: MIDAZOLAM 100MG/100ML PREMIX IV PRN ×2 (06:15)
[2022-03-24] MEDS: SPIRONOLACTONE 25MG TABLET PO SCH ×2 (06:15→17:48)
[2022-03-24 06:19] LABS: CHLORIDE 95 mEq/L (98-107)
[2022-03-24] MEDS: MIDAZOLAM HCL 100 MG in SODIUM CHLORIDE 0.9% 80 ML IV PRN (06:51)
[2022-03-24 08:17] LABS: BG BASE EXCESS 11.7 mmol/L (-2.0-2.0); BG CARBOXYHEMOGLOBIN 0.7 % (0.5-1.5); BG DEOXYHEMOGLOBIN 16.9 % (0.0-5.0); BG FRACTION INSPIRED OXYGEN 100; BG HCO3 ACT 39.4 mmol/L (22.0-26.0); BG METHEMOGLOBIN 0.3 % (0.0-1.5); BG OXYGEN SATURATION 82.9 % (92.0-98.5); BG OXYHEMOGLOBIN 82.1 % (94.0-97.0); BG PCO2 67.5 mmHg (35.0-45.0); BG PH 7.384 (7.350-7.450); BG PO2 48.2 mmHg (75.0-100.0); BG SAMPLE SITE RIGHT RADIAL; BG TOTAL HEMOGLOBIN 12.6 g/dL (12.0-18.0); BG VENT MODE PRVC
[2022-03-24] MEDS: ACETYLCYSTEINE 100MG/ML 10% VIAL 4ML INH SCH ×2 (09:01→16:46)
[2022-03-24] MEDS: ASCORBIC ACID 500 MG TABLET PO SCH ×2 (09:13→21:22)
[2022-03-24] MEDS: LACTULOSE 20G/30ML UDC PO SCH ×2 (09:13→21:21)
[2022-03-24] MEDS: ZINC SULFATE 220 MG ( 50 ) CAPSULE PO SCH (09:13)
[2022-03-24] MEDS: FUROSEMIDE 40MG/4ML VIAL IVP SCH (09:13)
[2022-03-24] MEDS: FAMOTIDINE 20MG TABLET PO SCH ×2 (09:14→21:22)
[2022-03-24] MEDS: NOREPINEPHRINE 32 MG in DEXT 5% WATER 218 ML IV PRN (16:24)
[2022-03-24] MEDS ORDERED: MIDODRINE HCL 5MG TABLET PO SCH (17:30)
[2022-03-24] MEDS: ENOXAPARIN 40MG/0.4ML SYR SUBCUT SCH (21:22)
[2022-03-25] VITALS (23 sets, daily range): BP systolic 84–136; BP diastolic 43–83
[2022-03-25] MEDS: METOCLOPRAMIDE HCL 10MG/2ML VIAL IV SCH ×2 (00:01→06:41)
[2022-03-25] MEDS: INSULIN LISPRO 100 UNITS/ML SUBCUT SCH ×2 (00:03→06:40)
[2022-03-25] MEDS: BLOOD SUGAR DIAGNOSTIC STRIP TEST SCH ×2 (00:05→06:41)
[2022-03-25] MEDS: ACETYLCYSTEINE 100MG/ML 10% VIAL 4ML INH SCH (00:24)
[2022-03-25] MEDS: IPRATROPIUM/ALBUTEROL 0.5-3(2.5)MG/3ML NEB HHN SCH ×2 (00:24→04:27)
[2022-03-25] MEDS: GUAIFENESIN 200MG/10ML SUGAR FREE UDC GT SCH (03:00)
[2022-03-25] MEDS: ONDANSETRON HCL 4MG/2ML INJ IV PRN (04:22)
[2022-03-25] MEDS: SPIRONOLACTONE 25MG TABLET PO SCH (06:00)
[2022-03-25] MEDS: METHYLPREDNISOLONE SOD SUCC 125 MG/2 ML VIAL IV SCH (06:39)
[2022-03-25 07:59] LABS: BG BASE EXCESS -0.6 mmol/L (-2.0-2.0); BG CARBOXYHEMOGLOBIN 0.9 % (0.5-1.5); BG DEOXYHEMOGLOBIN 30.2 % (0.0-5.0); BG FRACTION INSPIRED OXYGEN 100; BG HCO3 ACT 27.1 mmol/L (22.0-26.0); BG METHEMOGLOBIN 0.1 % (0.0-1.5); BG OXYGEN SATURATION 69.5 % (92.0-98.5); BG OXYHEMOGLOBIN 68.8 % (94.0-97.0); BG PCO2 58.1 mmHg (35.0-45.0); BG PH 7.286 (7.350-7.450); BG PO2 39.8 mmHg (75.0-100.0); BG SAMPLE SITE RIGHT RADIAL; BG TOTAL HEMOGLOBIN 13.1 g/dL (12.0-18.0); BG VENT MODE PRVC
[2022-03-25] MEDS ORDERED: CALCIUM CHLORIDE 1GM/10ML SYR IV ONE (08:03)
[2022-03-25] MEDS ORDERED: AMIODARONE HCL 50MG/ML 3ML VIAL IV ONE (08:03)
[2022-03-25] MEDS ORDERED: EPINEPHRINE 0.1MG/ML (1:10,000) 10ML SYR ONE (08:03)
[2022-03-25] MEDS ORDERED: SODIUM BICARBONATE 8.4% 1 MEQ/ML 50ML SYR IV ONE (08:03)
== END 2022-03-25 13:22 | DRG 870 ==
LOC: ER 01:09 → MICUSO 03:25 → 8WST 07:24 → MICUSO 07:25 → 5EST 12:27 → MICUSO 03-13 10:47 → CVICU 03-13 14:50
PROVIDERS: ADMIT Internal Medicine; ATTEND Internal Medicine
PROC: 5A09357 Assistance with Respiratory Ventilation, Less than 24 Consecutive Hours, Continuous Positive Airway Pressure (ICD-10-PCS; 2022-03-08)
PROC: 5A09357 Assistance with Respiratory Ventilation, Less than 24 Consecutive Hours, Continuous Positive Airway Pressure (ICD-10-PCS; 2022-03-09)
PROC: 5A09357 Assistance with Respiratory Ventilation, Less than 24 Consecutive Hours, Continuous Positive Airway Pressure (ICD-10-PCS; 2022-03-10)
PROC: 5A09357 Assistance with Respiratory Ventilation, Less than 24 Consecutive Hours, Continuous Positive Airway Pressure (ICD-10-PCS; 2022-03-11)
PROC: 5A09357 Assistance with Respiratory Ventilation, Less than 24 Consecutive Hours, Continuous Positive Airway Pressure (ICD-10-PCS; 2022-03-12)
PROC: 5A1955Z Respiratory Ventilation, Greater than 96 Consecutive Hours (ICD-10-PCS; principal; 2022-03-13)
PROC: 02HV33Z Insertion of Infusion Device into Superior Vena Cava, Percutaneous Approach (ICD-10-PCS; 2022-03-13)
PROC: B548ZZA Ultrasonography of Superior Vena Cava, Guidance (ICD-10-PCS; 2022-03-13)
PROC: 5A09357 Assistance with Respiratory Ventilation, Less than 24 Consecutive Hours, Continuous Positive Airway Pressure (ICD-10-PCS; 2022-03-13)
PROC: 0BH17EZ Insertion of Endotracheal Airway into Trachea, Via Natural or Artificial Opening (ICD-10-PCS; 2022-03-13)
PROC: 0W9B30Z Drainage of Left Pleural Cavity with Drainage Device, Percutaneous Approach (ICD-10-PCS; 2022-03-14)
PROC: 5A12012 Performance of Cardiac Output, Single, Manual (ICD-10-PCS; 2022-03-25)
DX: A41.9 Sepsis, unspecified organism (principal); J18.9 Pneumonia, unspecified organism; I50.43 Acute on chronic combined systolic (congestive) and diastolic (congestive) heart failure; J96.21 Acute and chronic respiratory failure with hypoxia; J96.22 Acute and chronic respiratory failure with hypercapnia; R65.21 Severe sepsis with septic shock; J44.1 Chronic obstructive pulmonary disease with (acute) exacerbation; E66.2 Morbid (severe) obesity with alveolar hypoventilation; J93.9 Pneumothorax, unspecified; J44.0 Chronic obstructive pulmonary disease with (acute) lower respiratory infection; E87.1 Hypo-osmolality and hyponatremia; E87.2 Acidosis; Z68.45 Body mass index [BMI] 70 or greater, adult; Z20.822 Contact with and (suspected) exposure to COVID-19; I45.10 Unspecified right bundle-branch block; M79.7 Fibromyalgia; E83.41 Hypermagnesemia; I48.91 Unspecified atrial fibrillation; E87.8 Other disorders of electrolyte and fluid balance, not elsewhere classified; E03.8 Other specified hypothyroidism; M06.9 Rheumatoid arthritis, unspecified; R21 Rash and other nonspecific skin eruption; R73.9 Hyperglycemia, unspecified; R00.1 Bradycardia, unspecified; Z74.01 Bed confinement status; Z99.81 Dependence on supplemental oxygen; Z91.19 Patient's noncompliance with other medical treatment and regimen; Z80.9 Family history of malignant neoplasm, unspecified; Z82.3 Family history of stroke
CPT/HCPCS: 31500; 36415; 36573; 36600; 71045; 80048; 80053; 80061; 80202; 80320; 81003; 82040; 82375; 82550; 82553; 82607; 82746; 82805; 82962; 83036; 83540; 83550; 83605; 83735; 83880; 84100; 84134; 84145; 84439; 84443; 84478; 84484; 85025; 85027; 87070; 87426; 92950; 93005; 93306; 93970; 94003; 94640; 94660; 99291; A6261; C1725; C9803; J0282; J0330; J0456; J0461; J0692; J0696; J1650; J1815; J1885; J1940; J2250; J2370; J2405; J2704; J2765; J2930; J3010; J3370; J3480; J3490; J7050; J7060; J7512; J7608; G0480